=== PATIENT | male | born 1945 | race Caucasian/White ===

== ENCOUNTER 2021-04-13 11:44 | Emergency (ER) | payer OTHER, SELFPAY ==
[~2021-04-13] VITALS: Ht 167.6 cm; Wt 61.2 kg
[~2021-04-13 11:44] MED LIST: FERR236T3 PO; METF-518 PO
[2021-04-13 11:50] VITALS: BP_SYST 140
[2021-04-13 13:04] LABS: BASOPHILS % (AUTO) 0.4 % (0.0-2.0); EOSINOPHILS % (AUTO) 0.4 % (0.0-4.0); HEMATOCRIT 26.9 % (36-54); HEMOGLOBIN 8.6 g/dL (14.0-18.0); LYMPHOCYTES # (AUTO) 0.3 K/uL (1.0-5.5); LYMPHOCYTES % (AUTO) 4.5 % (20.5-51.5); MEAN CORPUSCULAR HEMOGLOBIN 31 pg (27-31); MEAN CORPUSCULAR HGB CONC 32 % (32-36); MEAN CORPUSCULAR VOLUME 98 fL (79.0-98.0); MONOCYTES # (AUTO) 0.5 K/uL (0.0-1.0); MONOCYTES % (AUTO) 7.3 % (1.7-9.3); NEUTROPHILS # (AUTO) 6.6 K/uL (1.8-7.7); NEUTROPHILS % (AUTO) 87.4 % (40.0-70.0); PLATELET COUNT (AUTO) 298 K/uL (130-430); RED BLOOD CELL COUNT(AUTO) 2.76 MIL/uL (4.2-6.2); RED CELL DISTRIBUTION WIDTH 16.2 % (9.0-15.0); WHITE BLOOD COUNT (AUTO) 7.6 K/uL (4.8-10.8)
[2021-04-13 13:39] VITALS: BP_SYST 121
== END 2021-04-13 13:39 | disposition home or self-care (01) ==
LOC: SED 11:44
DX: D64.89 Other specified anemias (principal); Z45.2 Encounter for adjustment and management of vascular access device; I10 Essential (primary) hypertension; E11.9 Type 2 diabetes mellitus without complications; Z79.84 Long term (current) use of oral hypoglycemic drugs; Z79.899 Other long term (current) drug therapy
CPT/HCPCS: 36415; 85025; 99283

== ENCOUNTER 2021-04-27 12:00 | Day surgery (SDC) | payer OTHER, SELFPAY ==
[2021-04-27 15:04] VITALS: BP_SYST 128
== END 2021-04-27 15:45 | disposition home or self-care (01) ==
LOC: SDS 12:00 → SMU 12:18 → SDS 15:45
PROVIDERS: ATTEND Internal Medicine
DX: R18.8 Other ascites (principal); Z20.822 Contact with and (suspected) exposure to COVID-19
CPT/HCPCS: 36415; 49083; 87426; C1729